=== PATIENT | female | born 2000 ===

== ENCOUNTER 2022-01-16 09:36 | Emergency (ER) | payer BC, SELFPAY ==
[2022-01-16 09:55] VITALS: BP 117/78; PULSE 74; RESP 12; TEMP 37.5; O2SAT 99; BMI 17.7
--- NOTE | 2022-01-16 10:07 | ED.PSYCH ---
HPI - Psych General Chief Complaint: Psychiatric Symptoms Stated Complaint: crisis Time Seen by Provider: 01/16/22 09:51 Source: patient Mode of arrival: EMS Limitations: no limitations History of Present Illness HPI Narrative: 21-year-old female who was brought to emergency department by ambulance for evaluation of possible suicidal ideation/suicide gesture. Information came from the patient. She states that she broke up with her boyfriend last week. She states that they were dating for a year and half. She states that she has been upset and depressed about the break-up. She told me that she was in a car with her mother and her mother thought that she was going to jump out of the car. She states that her mother then called 911 in the patient was brought to the emergency department by ambulance. The patient states that her mother calls the police all the time whenever the patient is upset. According to the nurse who took report from EMS, the patient got in argument with her mother in her mother was concerned about self-harm and the mother called the ambulance. The patient denied being suicidal or homicidal. She states that she is irritated does not want to be here at this time. She denied being ill in any way, she denied fever, chills, chest pain, shortness of breath, cough, nausea, vomiting, diarrhea. The patient has received 3 COVID-19 vaccinations. complaint: feels depressed Onset (ago): week(s) (1) Duration: constant History of same: Yes Relieving factors: none Exacerbating factors: other (Break-up with her boyfriend 1/2 weeks prior) Context: significant life stressor Associated psychiatric symptoms: depression Associated symptoms: headache, shortness of breath, nausea and vomiting Treatments prior to arrival: none Related Data Allergies Allergy/AdvReac Type Severity Reaction Status Date / Time No Known Allergies Allergy Verified 01/16/22 09:51 Review of Systems Review of Systems: Yes all other systems are reviewed and are negative [facility] Past Medical History [facility] Narrative: Past medical history: Asthma, depression, anxiety, anorexia. Social history: The patient states that she uses vape nicotine products multiple times a day. She drinks 2-3 alcoholic drinks several times a week. She states that she smoked marijuana resin (daps) multiple times a day. Social History Social History Advance Directives: No Advance Directives Information Provided: No Physical Exam Vital Signs: Vital Signs: Last Vital Signs Temp 99.5 F 01/16/22 09:55 Pulse 74 01/16/22 09:55 Resp 12 01/16/22 09:55 BP 117/78 01/16/22 09:55 Pulse Ox 99 01/16/22 09:55 O2 Del Method 01/16/22 09:55 BMI result Body Mass Index 17.7 Const: General: cooperative and no acute distress Orientation/consciousness: oriented to person and oriented to place Limitations: no limitations HEENT: Head: Yes normal to inspection, Yes normocephalic and Yes atraumatic Ears: external ears normal General nose exam: Normal external nose present Face and sinus: Yes normal facial exam Mouth: Normal oral and palatal mucosa present Throat: Yes posterior oropharynx normal Eyes: General: appearance normal, both eyes and all related structures Pupils: Equal, round and reactive pupils present Neck: Neck: Yes normal visual inspection, Yes no lymphadenopathy, Yes trachea midline and Yes supple Chest: Chest palpation & inspection: normal inspection of the chest and normal palpation of entire chest wall Resp: Effort & Inspection: normal respiratory effort and able to speak in complete sentences Auscultation: clear to auscultation bilaterally Cardio: Rate: regular rate Rhythm: regular rhythm Heart sounds: S1 normal heart sound present, S2 normal heart sound present and no murmurs GI: Inspection: Yes normal to inspection Palpation (GI): Soft to palpation, nontender and no guarding Auscultation: normal bowel sounds : General: Yes no CVA tenderness Back/Spine/Pelvis: Back: no CVA tenderness Skin: General skin exam: no rashes or lesions noted Neuro: General: oriented to person and oriented to place Cranial nerves: Yes CN's II-XII intact bilaterally and Yes Equal, round and reactive pupils present Cognition (Neuro): normal cognition Motor exam (neuro): 5/5 motor strength present throughout Extrem: General: Yes normal to inspection Psych: Appearance: grossly normal Speech and movement: Normal speech and movement present Affect: normal affect Attitude: cooperative Thought process: Normal thought process present Thought content: Normal thought content present Course Course Course Narrative: 21-year-old female who was brought to emergency department for evaluation of possible suicidal a knapp/suicide gesture (threatened to jump out of a car). The patient states that she broke up with her boyfriend approximately 1 1/2 weeks prior, they did and dating for 1 and half years. She states she is depressed. 1123: Urine test was negative urine tox screen was positive for marijuana. I did talk to the patient again she denies being suicidal or homicidal. The patient is not on a [address] and she is requesting to leave. At this point, I do not think that we can can pelvic to stay to talk to our crisis people and she will be discharged. I did tell her that she should seek help from her outpatient therapist is marissa and if she started to feel suicidal or homicidal she should return to the emergency department and we can help her. MDM - Psych Lab Data Labs: Lab Results 01/16/22 01/16/22 Range/Units 10:30 10:30 Urine Test NEGATIVE (NEGATIVE) Urine Opiates Screen Not Detected (Not Detect) Urine Fentanyl Screen Not Detected (Not Detect) Ur Barbiturates Screen Not Detected (Not Detect) Ur Phencyclidine Scrn Not Detected (Not Detect) Ur Amphetamines Screen Not Detected (Not Detect) U Benzodiazepines Scrn Not Detected (Not Detect) Urine Cocaine Screen Not Detected (Not Detect) U Marijuana (THC) Screen POSITIVE H (Not Detect) Discharge Plan Discharge Clinical Impression: Depression Patient Disposition: Home, Self-Care Instructions: Depression (ED) Additional Instructions: At this time, you told me that you are not thinking about hurting your cell or hurting anyone else. Sometimes, after stressful situations like a break-up, you can get very depressed and start thinking about hurting yourself or others. If you start to feel this way, please seek help from your therapists or please return to the emergency department and we can help you. Continue taking all your medications as prescribed by your providers. Follow-up with your doctor in 2 days. Please return to the emergency department if your symptoms get worse or if you develop any symptoms that are concerning to you.
[2022-01-16] MEDS: clonazePAM 1 MG TABLET PO (10:24)
--- NOTE | 2022-01-16 10:26 | PC.NURSE ---
pt comes via ems with stated threats of self harm after an argument with parents. pt is yelling, agitated, requesting to be seen by crisis and be discharged. Pt currently in chair, yelling at other patients. Crisis eval pending. Medicated for agitatation as requested
[2022-01-16 10:46] LABS: UPreg QC Valid YES; Urine Pregnancy NEGATIVE (NEGATIVE)
[2022-01-16 10:55] LABS: Amphetamine Screen Urine Not Detected (Not Detect); Barbiturates, Urine Not Detected (Not Detect); Benzodiazepines Screen Urine Not Detected (Not Detect); Cannabinoid Screen Urine POSITIVE (Not Detect); Cocaine Screen Urine Not Detected (Not Detect); Fentanyl, urine Not Detected (Not Detect); Opiate Screen Urine Not Detected (Not Detect); Phencyclidine Screen Urine Not Detected (Not Detect)
--- NOTE | 2022-01-16 11:17 | PC.NURSE ---
pt increasingly agitated. consulted with Dr. Bolaños for possible re-eval and discharge to home
--- NOTE | 2022-01-16 11:18 | PC.NURSE ---
smart sheet completed
--- NOTE | 2022-01-16 11:21 | PC.NURSE ---
pt denies suicidality. on reassessment plan is to discharge pt home
== END 2022-01-16 11:27 | disposition home or self-care (01) ==
PROVIDERS: Emergency Provider Emergency Medicine Emergency Medical Services
DX: F33.9 Major depressive disorder, recurrent, unspecified (principal); F12.90 Cannabis use, unspecified, uncomplicated; J45.909 Unspecified asthma, uncomplicated; Z63.0 Problems in relationship with spouse or partner
CPT/HCPCS: 80307; 81025; 99283